=== PATIENT | male | born 1960 | race Caucasian/White ===

== ENCOUNTER 2022-04-25 15:59 | Inpatient (IN) ==
[2022-04-25 17:44] LABS: ABS Eosinophils 0.2 10^3/ul (0-0.6); ABS Lymphocytes 1.8 10^3/ul (1.0-4.8); ABS Monocytes 0.6 10^3/ul (0-0.8); ABS Neutrophils 4.7 10^3/ul (1.5-7.7); Eosinophil % 2.4 %; Hematocrit 44 % (42-52); Hemoglobin 14.6 g/dL (14.0-18.0); Mean Corpuscular HGB Conc 34 g/dL (31-36); Mean Corpuscular Hemoglobin 31 pg (27-31); Mean Corpuscular Volume 92 fL (80-94); Mean Platelet Volume 8.8 fL (7.4-10.4); Nucleated Red Blood Cells % 0.1; Platelet Count 174 10^3/uL (150-450); Red Blood Count 4.75 10^6 /uL (4.18-5.48); Red Cell Distribution Width 14 % (10-15); White Blood Count 7.3 10^3/uL (3.5-10.8)
[2022-04-25 18:12] LABS: ALT 11 U/L (7-52); Albumin 3.8 g/dL (3.2-5.2); Albumin/Globulin Ratio 1.7 (1-3); Alkaline Phosphatase 86 U/L (35-149); Blood Urea Nitrogen 17 mg/dL (6-24); CO2 Carbon Dioxide 28 mmol/L (22-32); Calcium 8.8 mg/dL (8.6-10.3); Chloride 107 mmol/L (101-111); Globulin 2.3 g/dL (2-4); Glucose 95 mg/dL (70-100); Sodium 141 mmol/L (135-145); Total Protein 6.1 g/dL (6.4-8.9)
[2022-04-25 19:02] LABS: Anion Gap 6 mmol/L (2-11)
[2022-04-25 19:18] LABS: Potassium Redraw 3.7 mmol/L (3.5-5.0)
[2022-04-25] MEDS ORDERED: Albuterol HFA INHALER 8 gm MDI INH PRN (20:18)
[2022-04-25 21:00] LABS: Free T4 0.43 ng/dL (0.61-1.12)
[2022-04-25 21:12] LABS: Urine Appearance Clear; Urine Bilirubin Negative (Negative); Urine Blood Negative (Negative); Urine Color Yellow; Urine Glucose Negative (Negative); Urine Ketones Trace (Negative); Urine Nitrite Negative (Negative); Urine Protein Negative (Negative); Urine Specific Gravity 1.021 (1.002-1.030); Urine Urobilinogen Positive (Negative)
[2022-04-25 21:16] LABS: Urine Bacteria Absent (Absent); Urine Red Blood Cell Absent (Absent); Urine Squamous Epithelial Cell Present (Absent); Urine White Blood Cell 1+(6-10/hpf) (Absent)
[2022-04-25 21:33] LABS: TSH Ultra Thyroid Stim Horm 167.13 mcIU/mL (0.34-5.60)
[2022-04-25] MEDS: Docusate LIQ 100 MG/10 ML UDC PO SCH (22:05)
[2022-04-25] MEDS: Senna TAB 8.6 mg TAB PO SCH (22:05)
[2022-04-26] MEDS: Fluticasone NASAL SPRAY 50MCG 16 gm SPRAY BTL INTRANASAL SCH ×3 (01:01→20:33)
[2022-04-26] MEDS: cefTRIAXone 1 gm/50 mL D5W 1 GM/50 ML BAG IV SCH (05:43)
[2022-04-26] MEDS: Mometasone 220 MCG MDI INH SCH ×2 (07:09→19:36)
[2022-04-26] MEDS: Carbidopa/Levodop 25/100 MG TAB PO SCH ×3 (08:14→15:43)
[2022-04-26] MEDS: Cholecalciferol (VIT D3) 1,000 unit TAB PO SCH (08:15)
[2022-04-26] MEDS: Enoxaparin 40 MG/0.4 ML SYR SUBCUT SCH (08:16)
[2022-04-26] MEDS: Triamcinolone 0.025% OINT 15 GM TUBE TOPICAL SCH ×2 (08:17→20:33)
[2022-04-26] MEDS: Senna TAB 8.6 mg TAB PO SCH (20:33)
[2022-04-26] MEDS: Docusate LIQ 100 MG/10 ML UDC PO SCH (20:39)
[2022-04-27] MEDS: Carbidopa/Levodop 25/100 MG TAB PO SCH ×3 (08:29→17:27)
[2022-04-27] MEDS: Enoxaparin 40 MG/0.4 ML SYR SUBCUT SCH (08:29)
[2022-04-27] MEDS: Fluticasone NASAL SPRAY 50MCG 16 gm SPRAY BTL INTRANASAL SCH ×2 (08:29→20:45)
[2022-04-27] MEDS: Cholecalciferol (VIT D3) 1,000 unit TAB PO SCH (08:29)
[2022-04-27] MEDS: Triamcinolone 0.025% OINT 15 GM TUBE TOPICAL SCH ×2 (08:30→20:45)
[2022-04-27] MEDS: cefTRIAXone 1 gm/50 mL D5W 1 GM/50 ML BAG IV SCH (09:52)
[2022-04-27] MEDS: Mometasone 220 MCG MDI INH SCH (20:12)
[2022-04-27] MEDS: Senna TAB 8.6 mg TAB PO SCH (20:44)
[2022-04-27] MEDS: Docusate LIQ 100 MG/10 ML UDC PO SCH (20:53)
[2022-04-28] MEDS: Carbidopa/Levodop 25/100 MG TAB PO SCH ×3 (08:26→17:13)
[2022-04-28] MEDS: Cholecalciferol (VIT D3) 1,000 unit TAB PO SCH (08:27)
[2022-04-28] MEDS: Enoxaparin 40 MG/0.4 ML SYR SUBCUT SCH (08:27)
[2022-04-28] MEDS: Fluticasone NASAL SPRAY 50MCG 16 gm SPRAY BTL INTRANASAL SCH ×2 (08:28→21:20)
[2022-04-28] MEDS: Triamcinolone 0.025% OINT 15 GM TUBE TOPICAL SCH ×2 (09:10→21:20)
[2022-04-28] MEDS: Mometasone 220 MCG MDI INH SCH (19:10)
[2022-04-28] MEDS: Docusate LIQ 100 MG/10 ML UDC PO SCH (21:16)
[2022-04-28] MEDS: Senna TAB 8.6 mg TAB PO SCH (21:17)
[2022-04-29] MEDS: Cholecalciferol (VIT D3) 1,000 unit TAB PO SCH (09:00)
[2022-04-29] MEDS: Carbidopa/Levodop 25/100 MG TAB PO SCH ×3 (09:00→16:25)
[2022-04-29] MEDS: Enoxaparin 40 MG/0.4 ML SYR SUBCUT SCH (09:01)
[2022-04-29] MEDS: Fluticasone NASAL SPRAY 50MCG 16 gm SPRAY BTL INTRANASAL SCH ×2 (09:01→21:33)
[2022-04-29] MEDS: Triamcinolone 0.025% OINT 15 GM TUBE TOPICAL SCH ×2 (09:02→21:33)
[2022-04-29] MEDS: Mometasone 220 MCG MDI INH SCH (18:02)
[2022-04-29] MEDS: Senna TAB 8.6 mg TAB PO SCH (21:33)
[2022-04-29] MEDS: Docusate LIQ 100 MG/10 ML UDC PO SCH (21:33)
[2022-04-30] MEDS: Cholecalciferol (VIT D3) 1,000 unit TAB PO SCH (08:36)
[2022-04-30] MEDS: Carbidopa/Levodop 25/100 MG TAB PO SCH ×2 (08:37→12:13)
[2022-04-30] MEDS: Enoxaparin 40 MG/0.4 ML SYR SUBCUT SCH (08:37)
[2022-04-30] MEDS: Triamcinolone 0.025% OINT 15 GM TUBE TOPICAL SCH (08:39)
[2022-04-30] MEDS: Fluticasone NASAL SPRAY 50MCG 16 gm SPRAY BTL INTRANASAL SCH (08:39)
[2022-04-30 14:30] VITALS: BP 137/69
== END 2022-04-30 15:10 | disposition swing bed (61) | DRG 641 ==
LOC: ED 15:59 → SUATTDRO 20:02 → EDHOLD 20:02 → MED 22:04
PROVIDERS: ADMIT Internal Medicine; ATTEND Hospitalist